=== PATIENT | female | born 1975 | race Caucasian/White ===

== ENCOUNTER 2023-09-27 13:59 | Outpatient (RCR) | payer BC, SELFPAY | END 2023-09-27 23:59 | disposition home or self-care (01) | LOC: RPT 13:59 | PROVIDERS: ATTENDING PHYSICIAN Orthopaedic Surgery; FAMILY PHYSICIAN Family Medicine | DX: M25.511 Pain in right shoulder (principal); M25.512 Pain in left shoulder; M62.81 Muscle weakness (generalized); Z73.6 Limitation of activities due to disability | CPT/HCPCS: 97162 ==

== ENCOUNTER 2023-10-15 05:54 | Outpatient (RCR) | payer BC, SELFPAY | END 2023-10-15 23:59 | disposition home or self-care (01) | LOC: RST 05:54 | PROVIDERS: ATTENDING PHYSICIAN Otolaryngology; FAMILY PHYSICIAN Family Medicine | DX: R49.0 Dysphonia (principal); K21.9 Gastro-esophageal reflux disease without esophagitis | CPT/HCPCS: 92507; 92524 ==

== ENCOUNTER 2023-10-25 08:50 | Outpatient (RCR) | payer BC, SELFPAY | END 2023-10-25 23:59 | disposition home or self-care (01) | LOC: RST 08:50 | PROVIDERS: ATTENDING PHYSICIAN Otolaryngology; FAMILY PHYSICIAN Family Medicine | DX: R49.0 Dysphonia (principal); K21.9 Gastro-esophageal reflux disease without esophagitis | CPT/HCPCS: 92507 ==

== ENCOUNTER 2024-01-11 08:49 | Outpatient (RCR) | payer BC, SELFPAY | END 2024-01-11 23:59 | disposition home or self-care (01) | LOC: RST 08:49 | PROVIDERS: ATTENDING PHYSICIAN Otolaryngology; FAMILY PHYSICIAN Family Medicine | DX: R49.0 Dysphonia (principal); K21.9 Gastro-esophageal reflux disease without esophagitis | CPT/HCPCS: 92507 ==

== ENCOUNTER 2024-02-10 06:35 | Outpatient (RCR) | payer BC, SELFPAY | END 2024-02-10 23:59 | disposition home or self-care (01) | LOC: RST 06:35 | PROVIDERS: ATTENDING PHYSICIAN Otolaryngology; FAMILY PHYSICIAN Family Medicine | DX: R49.0 Dysphonia (principal); K21.9 Gastro-esophageal reflux disease without esophagitis | CPT/HCPCS: 92507 ==

== ENCOUNTER 2024-03-09 06:34 | Outpatient (RCR) | payer BC, SELFPAY | END 2024-03-09 23:59 | disposition home or self-care (01) | LOC: RST 06:34 | PROVIDERS: ATTENDING PHYSICIAN Otolaryngology; FAMILY PHYSICIAN Family Medicine | DX: R49.0 Dysphonia (principal); K21.9 Gastro-esophageal reflux disease without esophagitis | CPT/HCPCS: 92507 ==

== ENCOUNTER 2024-04-06 06:38 | Outpatient (RCR) | payer BC, SELFPAY | END 2024-04-06 23:59 | disposition home or self-care (01) | LOC: RST 06:38 | PROVIDERS: ATTENDING PHYSICIAN Otolaryngology; FAMILY PHYSICIAN Family Medicine | DX: R49.0 Dysphonia (principal); K21.9 Gastro-esophageal reflux disease without esophagitis | CPT/HCPCS: 92507 ==

== ENCOUNTER 2024-04-18 12:48 | Outpatient (RCR) | payer BC, SELFPAY | END 2024-04-18 14:14 | disposition home or self-care (01) | LOC: RST 12:48 | PROVIDERS: ATTENDING PHYSICIAN Otolaryngology; FAMILY PHYSICIAN Family Medicine | DX: R49.0 Dysphonia (principal); K21.9 Gastro-esophageal reflux disease without esophagitis | CPT/HCPCS: 92507 ==